=== PATIENT | male | born 1970 | race Hispanic/Latino ===

== ENCOUNTER 2018-03-22 12:43 | Emergency (ER) | payer SELFPAY ==
--- NOTE | 2018-03-22 17:04 | EDPHYS ---
Physician Documentation [facility] Name: Wes Schneider Age: 47 yrs Sex: Male : 1970 Arrival Date: 03/22/2018 Time: 12:46 Bed 15 Private MD: ED Physician Nando Aceves HPI: 03/22 14:54 This 47 yrs old Male presents to ER via Ambulatory with complaints of Shoulder jmm Pain. 14:54 The patient or guardian complains of pain, that is acute. Onset: The symptoms/episode jmm began/occurred gradually, 1 day(s) ago. Modifying factors: the symptoms are alleviated by remaining still, The symptoms are aggravated by sneezing, heavy lifting. Associated signs and symptoms:. The patient has not experienced similar symptoms in the past. This is a 47 year old male with a history of gerd that presents to the ED with right sided chest pain and right upper back pain which occurred with sneezing. Patient states the symptoms returned. The pain is currently resolved. Patient denies shortness of breath. Historical: - Allergies: 13:13 No Known Allergies; aj - Home Meds: 13:13 Nexium Oral [Active]; aj - PMHx: 13:13 GERD; aj - PSHx: 13:13 Appendectomy; Hernia repair; aj - Immunization history:: Adult Immunizations up to date. - Social history:: Smoking status: Patient/guardian denies using tobacco. - Ebola Screening: : Patient negative for fever greater than or equal to 101.5 degrees Fahrenheit, and additional compatible Ebola Virus Disease symptoms Patient denies exposure to infectious person Patient denies travel to an Ebola-affected area in the 21 days before illness onset No symptoms or risks identified at this time. ROS: 14:59 Constitutional: Negative for fever, chills, and weight loss, Eyes: Negative for injury, jmm pain, redness, and discharge, ENT: Negative for injury, pain, and discharge, Neck: Negative for injury, pain, and swelling. 14:59 Respiratory: Negative for shortness of breath, cough, wheezing, and pleuritic chest pain, Abdomen/GI: Negative for abdominal pain, nausea, vomiting, diarrhea, and constipation, MS/Extremity: Negative for injury and deformity, Skin: Negative for injury, rash, and discoloration, Neuro: Negative for headache, weakness, numbness, tingling, and seizure. 14:59 Cardiovascular: Positive for chest pain, with movement. 14:59 All other systems are negative. Exam: 14:59 Constitutional: This is a well developed, well nourished patient who is awake, alert, jmm and in no acute distress. Head/Face: atraumatic. Eyes: EOMI, no conjunctival erythema appreciated ENT: Moist Mucus Membranes Neck: Trachea midline, Supple Chest/axilla: Normal chest wall appearance and motion. Cardiovascular: Regular rate and rhythm. No edema appreciated Respiratory: Normal respirations, no respiratory distress appreciated Abdomen/GI: Non distended, soft Back: Normal ROM Skin: General appearance color normal MS/ Extremity: Moves all extremities, no obvious deformities appreciated, no edema noted to the lower extremities Neuro: Awake and alert, normal gait Psych: Behavior is normal, Mood is normal, Patient is cooperative and pleasant Vital Signs: 13:13 BP 152 / 93; Pulse 92; Resp 16; Temp 98.2; Pulse Ox 99% on R/A; Weight 90.72 kg; Height aj 6 ft. 0 in. (182.88 cm); 17:00 BP 145 / 90; Pulse 89; Resp 16 S; Pulse Ox 99% on R/A; jl7 13:13 Body Mass Index 27.12 (90.72 kg, 182.88 cm) MDM: 14:17 Patient medically screened. [facility] 17:03 Data reviewed: vital signs, nurses notes. Counseling: I had a detailed discussion with jm the patient and/or guardian regarding: the historical points, exam findings, and any diagnostic results supporting the discharge/admit diagnosis, radiology results, the need for outpatient follow up, to return to the emergency department if symptoms worsen or persist or if there are any questions or concerns that arise at home. 17:03 ED course: symptoms appear most likely musculoskeletal. cxr normal, i do not suspect an [facility] acute process. . 03/22 13:15 Order name: Chest Pa And Lat (2 Views) XRAY; Complete Time: 22:01 aj 03/22 15:19 Order name: EKG; Complete Time: 15:21 jl7 03/22 14:53 Order name: EKG - Nurse/Tech; Complete Time: 15:56 [facility] Administered Medications: No medications were administered Disposition: 03/23 06:57 Co-signature as Attending Physician, Nando Aceves MD I agree with the assessment and tara plan of care. Disposition: 03/22/18 17:04 Discharged to Home. Impression: Muscle Strain. - Condition is Stable. - Discharge Instructions: Muscle Strain. - Medication Reconciliation Form, Thank You Letter, Antibiotic Education, Prescription Opioid Use form. - Follow up: Private Physician; When: 2 - 3 days; Reason: Recheck today's complaints, Continuance of care, Re-evaluation by your physician. Signatures: Dispatcher [employer] EDHeather Maria, RN Nando Ronquillo MD MD cha Mickail, Joel, PA PA jmm Leal, Jahala RN RN jl7 Corrections: (The following items were deleted from the chart) 03/22 17:26 17:04 03/22/2018 17:04 Discharged to Home. Impression: Muscle Strain. Condition is jl7 Stable. Forms are Medication Reconciliation Form, Thank You Letter, Antibiotic Education, Prescription Opioid Use. Follow up: Private Physician; When: 2 - 3 days; Reason: Recheck today's complaints, Continuance of care, Re-evaluation by your physician. hallie
--- NOTE | 2018-03-22 17:04 | ER ---
Nurse's Notes [facility] Name: Wes Schneider Age: 47 yrs Sex: Male : 1970 Arrival Date: 03/22/2018 Time: 12:46 Bed 15 Private MD: Diagnosis: Muscle Strain Presentation: 03/22 13:12 Presenting complaint: Patient states: Pain to right shoulder and upper chest after aj sneezing today. Transition of care: patient was not received from another setting of care. Onset of symptoms was March 22, 2018. Risk Assessment: Do you want to hurt yourself or someone else? Patient reports no desire to harm self or others. Initial Sepsis Screen: Does the patient meet any 2 criteria? No. Patient's initial sepsis screen is negative. Does the patient have a suspected source of infection? No. Patient's initial sepsis screen is negative. Care prior to arrival: None. 13:12 Method Of Arrival: Ambulatory aj 13:12 Acuity: JEISON 4 aj Triage Assessment: 13:13 General: Appears in no apparent distress. comfortable, Behavior is calm, cooperative, aj appropriate for age. Pain: Complains of pain in right supraclavicular area, right clavicle and anterior aspect of right shoulder. Neuro: Level of Consciousness is awake, alert, obeys commands, Oriented to person, place, time, situation, Appropriate for age. Cardiovascular: Capillary refill < 3 seconds in bilateral fingers. Respiratory: Airway is patent Respiratory effort is even, unlabored, Respiratory pattern is regular, symmetrical. Derm: Skin is intact, is healthy with good turgor, Skin is pink, warm \T\ dry. normal. Musculoskeletal: Reports pain in right supraclavicular area, right clavicle and anterior aspect of right shoulder. Historical: - Allergies: 13:13 No Known Allergies; aj - Home Meds: 13:13 Nexium Oral [Active]; aj - PMHx: 13:13 GERD; aj - PSHx: 13:13 Appendectomy; Hernia repair; aj - Immunization history:: Adult Immunizations up to date. - Social history:: Smoking status: Patient/guardian denies using tobacco. - Ebola Screening: : Patient negative for fever greater than or equal to 101.5 degrees Fahrenheit, and additional compatible Ebola Virus Disease symptoms Patient denies exposure to infectious person Patient denies travel to an Ebola-affected area in the 21 days before illness onset No symptoms or risks identified at this time. Screenin:00 Abuse screen: Denies threats or abuse. Denies injuries from another. Nutritional jl7 screening: No deficits noted. Tuberculosis screening: No symptoms or risk factors identified. Fall Risk None identified. Assessment: 15:00 General: Appears in no apparent distress. uncomfortable, Behavior is calm, cooperative, jl7 appropriate for age. Neuro: Level of Consciousness is awake, alert, obeys commands. Cardiovascular: Patient's skin is warm and dry. Respiratory: Airway is patent Respiratory effort is even, unlabored, Respiratory pattern is regular, symmetrical. Derm: Skin is pink, warm \T\ dry. Musculoskeletal: Range of motion: intact in all extremities. 16:00 Reassessment: No changes from previously documented assessment. Patient and/or family jl7 updated on plan of care and expected duration. Pain level reassessed. Patient is alert, oriented x 3, equal unlabored respirations, skin warm/dry/pink. 17:00 Reassessment: Patient appears in no apparent distress at this time. No changes from jl7 previously documented assessment. Patient and/or family updated on plan of care and expected duration. Pain level reassessed. Patient is alert, oriented x 3, equal unlabored respirations, skin warm/dry/pink. Vital Signs: 13:13 BP 152 / 93; Pulse 92; Resp 16; Temp 98.2; Pulse Ox 99% on R/A; Weight 90.72 kg; Height aj 6 ft. 0 in. (182.88 cm); 17:00 BP 145 / 90; Pulse 89; Resp 16 S; Pulse Ox 99% on R/A; jl7 13:13 Body Mass Index 27.12 (90.72 kg, 182.88 cm) aj ED Course: 12:46 Patient arrived in ED. rg4 13:12 Triage completed. aj 13:13 Arm band placed on left wrist. Patient placed in waiting room, Patient notified of wait aj time. 14:11 Lion Sauceda PA is PHCP. jmm 14:11 Nando Aceves MD is Attending Physician. jmm 14:15 Patient moved to radiology via wheelchair. jb2 14:30 X-ray completed. Patient tolerated procedure well. Patient moved back from radiology. jb2 14:31 Chest Pa And Lat (2 Views) XRAY In Process Unspecified. EDMS 14:34 Mary Murguia, RN is Primary Nurse. jl7 15:28 EKG done, by cytotechnologist. reviewed by Nando Aceves MD. at1 17:00 Patient has correct armband on for positive identification. Bed in low position. Call jl7 light in reach. Side rails up X 1. Pulse ox on. NIBP on. 17:26 No provider procedures requiring assistance completed. IV discontinued, intact, jl7 bleeding controlled, No redness/swelling at site. Pressure dressing applied. Administered Medications: No medications were administered Outcome: 17:04 Discharge ordered by . hallie 17:26 Discharged to home ambulatory. jl7 17:26 Condition: stable 17:26 Discharge instructions given to patient, Instructed on discharge instructions, follow up and referral plans. Demonstrated understanding of instructions, follow-up care. 17:26 Patient left the ED. jl7 Signatures: Dispatcher [employer] EDMS Heather Woods, RN RN Lion Dunlap PA PA Michael De Leon jb2 Heather Gibson, eating disorder psychologist EKG Tat1 Beverly Lowry rg4 Mary Murguia, RN RN jl7
--- NOTE | 2018-03-22 19:37 | RAD REPORT ---
EXAM DESCRIPTION: RAD - Chest Pa And Lat (2 Views) - 03/22/2018 2:48 pm CLINICAL HISTORY: Right shoulder pain, upper chest pain COMPARISON: None. TECHNIQUE: PA and lateral views of the chest were obtained. FINDINGS: The lungs are fibrotic as a baseline. No focal consolidation or mass. No prior imaging carmela ilable to assess for progression or stability. This degree of fibrotic change could mask early inters titial edema or infiltrate. Trachea is midline. Heart size is normal and central vasculature is within normal limits. No pleur al effusion or pneumothorax seen. No acute bony finding noted. No aortic abnormality. Patient has a moderately large hiatal hernia. IMPRESSION: Prominent interstitial markings. In the absence of a comparison and absence of acute res piratory symptoms this is probably baseline fibrosis. Moderately large hiatal hernia.
--- NOTE | 2018-03-23 07:19 | EKG ---
Test Date: 2018-03-22 Test Time: 15:19:53 Solar Energy Technician: SHERINE MEASUREMENT RESULTS: Intervals: Rate: 69 MN: 144 QRSD: 96 QT: 384 QTc: 411 [place]: P: 35 MN: 144 QRS: 81 T: 63 INTERPRETIVE STATEMENTS: Normal sinus rhythm Normal ECG No previous ECG available for comparison Electronically Signed On 03-23-18 07:18:21 IMAGERY ANALYST by Ankit De Jesus
== END 2018-03-22 17:26 | disposition home or self-care (01) ==
LOC: ER 12:43
DX: M62.838 Other muscle spasm (principal); K21.9 Gastro-esophageal reflux disease without esophagitis
CPT/HCPCS: 71046; 93005; 99283

== ENCOUNTER 2020-03-21 12:53 | Emergency (ER) | payer OTHER, SELFPAY ==
[2020-03-21 14:53] LABS: Absolute Lymphocytes (CBC) 1.2 K/uL (0.7-4.9); Basophils % 0.5 % (0-1.3); Lymphocytes % 20.3 % (15.3-44.8); MPV 9.7 fL (7.6-11.3)
[2020-03-21 15:07] LABS: ALT/SGPT 35 U/L (12-78); AST/SGOT 21 U/L (15-37); Albumin 3.9 g/dL (3.4-5.0); Alkaline Phosphatase 95 U/L (45-117); BUN Blood Urea Nitrogen 13 mg/dL (7-18); Bicarbonate 30 mmol/L (21-32); Bilirubin Total 0.4 mg/dL (0.2-1.0); Glucose Level 99 mg/dL (74-106); Potassium 4.4 mmol/L (3.5-5.1); Protein, Total 7.9 g/dL (6.4-8.2); Sodium Level 140 mmol/L (136-145)
--- NOTE | 2020-03-21 15:40 | EDPHYS ---
Physician Documentation [facility] Name: Wes Schneider Age: 49 yrs Sex: Male : 1970 Arrival Date: 03/21/2020 Time: 12:55 Bed 23 Private MD: ED Physician Annie Dalal HPI: 03/21 14:09 This 49 yrs old Male presents to ER via Ambulatory with complaints of Lip jmm Twitching. 15:28 The patient's problem is reported as facial twitch. Onset: The symptoms/episode jmm began/occurred last night. Duration: The episodes are intermittent. The symptoms are alleviated by nothing. The symptoms are aggravated by nothing. This is a 49 year old male with a history of GERD that presents to the ED with complaints of left sided facial twitching beginning last night. 15:36 Patient denies weakness, difficulty with speech. jmm Historical: - Allergies: 13:13 No Known Allergies; iw - Home Meds: 13:13 None [Active]; iw - PMHx: 13:13 GERD; iw - PSHx: 13:13 Appendectomy; Hernia repair; iw - Immunization history:: Adult Immunizations. - Social history:: Smoking status: Patient denies any tobacco usage or history of. ROS: 15:36 Constitutional: Negative for fever, chills, and weight loss, Cardiovascular: Negative jmm for chest pain, palpitations, and edema, Respiratory: Negative for shortness of breath, cough, wheezing, and pleuritic chest pain, Neuro: Negative for headache, weakness, numbness, tingling, and seizure. Exam: 15:36 Radiologist reports: negative jmm 15:36 Constitutional: This is a well developed, well nourished patient who is awake, alert, and in no acute distress. Head/Face: atraumatic. Eyes: EOMI, no conjunctival erythema appreciated ENT: Moist Mucus Membranes Neck: Trachea midline, Supple Chest/axilla: Normal chest wall appearance and motion. Cardiovascular: Regular rate and rhythm. No edema appreciated Respiratory: Normal respirations, no respiratory distress appreciated Abdomen/GI: Non distended, soft Back: Normal ROM Skin: General appearance color normal MS/ Extremity: Moves all extremities, no obvious deformities appreciated, no edema noted to the lower extremities Neuro: Awake and alert, normal gait Psych: Behavior is normal, Mood is normal, Patient is cooperative and pleasant Vital Signs: 13:10 BP 126 / 94; Pulse 88; Resp 16; Temp 97.9; Pulse Ox 98% ; MDM: 14:09 Patient medically screened. [facility] 15:37 Data reviewed: vital signs, nurses notes, lab test result(s). ED course: No focal jmm deficits appreciated. Patient is advised to d/c caffeine and follow up with neuro for further evaluation. Patient is otherwise given strict return precautions. Patient understood and agrees with the plan of care. . 03/21 14:12 Order name: CBC with Diff; Complete Time: 15:[address] [facility] 03/21 14:12 Order name: CMP; Complete Time: 15:[address] [facility] 03/21 14:12 Order name: Saline Lock; Complete Time: 14:[address] [facility] Administered Medications: No medications were administered Disposition: 18:37 Co-signature as Attending Physician, Annie Dalal MD. ma2 Disposition: 03/21/20 15:39 Discharged to Home. Impression: Tic disorder, unspecified. - Condition is Stable. - Discharge Instructions: Muscle Cramps and Spasms, Tic Disorders. - Medication Reconciliation Form, Thank You Letter, Antibiotic Education, Prescription Opioid Use form. - Follow up: Juan Diego Stephen MD; When: 2 - 3 days; Reason: Recheck today's complaints, Continuance of care, Re-evaluation by your physician. Signatures: Dispatcher [employer] EDMS Lion Sauceda PA PA jmm Williams, Irene, RN RN iw Alzahri, Mohammad, MD MD ma2 Corrections: (The following items were deleted from the chart) 16:00 15:39 03/21/2020 15:39 Discharged to Home. Impression: Tic disorder, unspecified. iw Condition is Stable. Forms are Medication Reconciliation Form, Thank You Letter, Antibiotic Education, Prescription Opioid Use. Follow up: Juan Diego Stephen; When: 2 - 3 days; Reason: Recheck today's complaints, Continuance of care, Re-evaluation by your physician. [facility]
--- NOTE | 2020-03-21 15:40 | ER ---
Nurse's Notes [facility] Name: Wes Schneider Age: 49 yrs Sex: Male : 1970 Arrival Date: 03/21/2020 Time: 12:55 Bed 23 Private MD: Diagnosis: Tic disorder, unspecified Presentation: 03/21 13:10 Chief complaint: Patient states: has had left sided lip twitching that happens every iw 10-15 minutes , started last night, and sensitivity to left cheek , intermittent. Coronavirus screen: At this time, the client does not indicate any symptoms associated with coronavirus-19. Ebola Screen: Patient negative for fever greater than or equal to 101.5 degrees Fahrenheit, and additional compatible Ebola Virus Disease symptoms Patient denies exposure to infectious person. Patient denies travel to an Ebola-affected area in the 21 days before illness onset. No symptoms or risks identified at this time. Initial Sepsis Screen: Does the patient meet any 2 criteria? No. Patient's initial sepsis screen is negative. Does the patient have a suspected source of infection? No. Patient's initial sepsis screen is negative. Risk Assessment: Do you want to hurt yourself or someone else? Patient reports no desire to harm self or others. Onset of symptoms was March 20, 2020. 13:10 Method Of Arrival: Ambulatory iw 13:10 Acuity: JEISON 4 iw 14:43 Acuity: JEISON 3 iw Historical: - Allergies: 13:13 No Known Allergies; iw - Home Meds: 13:13 None [Active]; iw - PMHx: 13:13 GERD; iw - PSHx: 13:13 Appendectomy; Hernia repair; iw - Immunization history:: Adult Immunizations. - Social history:: Smoking status: Patient denies any tobacco usage or history of. Screenin:43 Abuse screen: Denies threats or abuse. Denies injuries from another. Nutritional iw screening: No deficits noted. Tuberculosis screening: No symptoms or risk factors identified. Fall Risk None identified. Vital Signs: 13:10 BP 126 / 94; Pulse 88; Resp 16; Temp 97.9; Pulse Ox 98% ; iw ED Course: 12:55 Patient arrived in ED. ds1 13:12 Triage completed. iw 13:36 Lion Sauceda PA is PHCP. jmm 13:36 Annie Dalal MD is Attending Physician. [facility] 14:10 Grecia Angel, RN is Primary Nurse. iw 14:43 Arm band placed on. iw 14:43 Initial lab(s) drawn, by me, sent to lab. Inserted saline lock: 22 gauge in right iw antecubital area, using aseptic technique. Blood collected. 15:38 Juan Diego Stephen MD is Referral Physician. [facility] 15:59 No provider procedures requiring assistance completed. IV discontinued, intact, iw bleeding controlled, No redness/swelling at site. Pressure dressing applied. Administered Medications: No medications were administered Outcome: 15:39 Discharge ordered by MD. [facility] 16:00 Discharged to home ambulatory, with family. 16:00 Condition: good 16:00 Discharge instructions given to patient, Instructed on discharge instructions, follow up and referral plans. Demonstrated understanding of instructions, follow-up care. 16:00 Patient left the ED. Signatures: Lion Sauceda PA PA jmm Sanford, Demi ds1 Grecia Angel, RN RN iw
[2020-03-21 16:45] VITALS: BP 126/94; TEMP 97.9; O2SAT 98
== END 2020-03-21 16:00 | disposition home or self-care (01) ==
LOC: ER 12:53
DX: F95.9 Tic disorder, unspecified (principal)
CPT/HCPCS: 36415; 80053; 85025; 99283